=== PATIENT | female | born 1995 | race Caucasian/White ===

== ENCOUNTER 2017-03-14 15:55 | Emergency (ER) | payer MEDICAID ==
--- NOTE | 2017-03-14 17:59 | ED Physician Chart ---
Chief Complaint/HPI - Patient Information Date Seen:: 03/14/17 Time Seen:: 17:45 Chief Complaint:: insect bite left arm History of Present Illness:: Patient was outside last night and thinks she was bitten or stung by an insect. She has redness and swelling of the posterior left upper arm. No chills or fever. Allergies:: Allergies Allergy/AdvReac Type Severity Reaction Status Date / Time No Known Allergies Allergy Verified 03/14/17 17:00 Vitals:: Vital Signs - 8 hr 03/14/17 16:55 Temp 97.9 F HR 69 RR 16 BP 97/67 O2 Sat % 99 Historian:: Patient Review:: Nurse's Note Reviewed Review of Systems - Review of Systems General/Constitutional: No fever, No chills Skin: Skin lesions Head: No headache, No light-headedness Eyes: No loss of vision ENT: No earache Neck: No neck pain Cardio Vascular: No chest pain Pulmonary: No SOB, No cough GI: No nausea, No vomiting G/U: No dysuria, No hematuria Musculoskeletal: No bone or joint pain Endocrine: No polyuria, No polydipsia Psychiatric: No prior psych history, No anxiety Hematopoietic: No bruising Allergic/Immuno: Urticaria Neurological: No syncope, No focal symptoms Past Medical History - Past Medical History Past Medical History: No significant medical hx Family History: None Social History: Non Smoker, No Alcohol Surgical History: None Psychiatricy History: None, Depression Family Medical History - Family Member Mother History Unknown: Yes Physical Exam - Physical Examination General/Constitutional: Well-developed, well-nourished, Alert, No distress Head: Atraumatic Eyes: Lids, conjuctiva normal Other Skin comments:: 4 cm of redness, swelling and induration of the posterior left upper arm about two [address] to the elbow from the shoulder. ENMT: External ears, nose nl Neck: No nuchal rigidity Respiratory: Nl effort/Exclusion, Clear to Auscultation Cardio Vascular: RRR GI: No tenderness/rebounding/guarding : No CVA tenderness Extremities: Normal digits & nails Neuro/Psych: No focal deficits Misc: Normal back, No paraspinal tenderness Assessment - Assessment General Assessment: Probably impossible to be certain patient does not have cellulitis although a local allergic reaction is more likely ED Septic Shock - . Is Septic Shock (SBP<90, OR Lactate>4 mmol\L) present?: No - <6hrs of presentation: Vital Signs: Vital Signs - 8 hr 03/14/17 16:55 Temp 97.9 F HR 69 RR 16 BP 97/67 O2 Sat % 99 Reassessment (Disposition) - Reassessment Reassessment Condition:: Unchanged - Diagnosis Diagnosis:: Cellulitis left upper; local allergic reaction left upper arm; insect bite left upper arm - Aftercare/Follow up Instructions Aftercare/Follow-Up Instructions:: Refer to Discharge Instructions Medication Prescribed:: Prescription for Bactrim double strength #14 to take one twice a day and Keflex 500 mg 4 times a day for 1 week and given; also prescribed was Atarax 25 mg #20 to take 14 times a day - Patient Disposition Discharge/Transfer:: Home Condition at Disposition:: Stable, Unchanged
== END 2017-03-14 18:00 | disposition home or self-care (01) ==
LOC: ER 15:55
DX: L03.114 Cellulitis of left upper limb (principal); W57.XXXA Bitten or stung by nonvenomous insect and other nonvenomous arthropods, initial encounter; Y93.89 Activity, other specified; Y92.89 Other specified places as the place of occurrence of the external cause; Y99.8 Other external cause status
CPT/HCPCS: Z7502